=== PATIENT | male | born 1995 | race African-American/Black ===

== ENCOUNTER 2020-09-17 17:41 | Emergency (ER) | payer MEDICAID ==
[~2020-09-17] VITALS: Ht 167.6 cm; Wt 68.0 kg
[2020-09-17 17:43] VITALS: BP 134/5
[2020-09-17] MEDS ORDERED: IBUPROFEN 600MG TABLET PO ONE (19:00)
== END 2020-09-17 20:50 | disposition home or self-care (01) ==
LOC: ER 17:51
DX: S92.422A Displaced fracture of distal phalanx of left great toe, initial encounter for closed fracture (principal); W17.89XA Other fall from one level to another, initial encounter; Y93.39 Activity, other involving climbing, rappelling and jumping off; Y92.89 Other specified places as the place of occurrence of the external cause
CPT/HCPCS: 29515; 73630; 99283; Z7610